=== PATIENT | female | born 1980 | race African-American/Black ===

== ENCOUNTER 2017-04-07 10:20 | Emergency (ER) | payer MEDICAID ==
[~2017-04-07] VITALS: Ht 160 cm; Wt 68.0 kg
[2017-04-07 11:43] VITALS: BP 138/86
[2017-04-07 12:54] LABS: CHLORIDE 106 mEq/L (98-107)
[2017-04-07 12:57] LABS: PROTHROMBIN TIME 10.7 sec
[2017-04-07 12:59] LABS: CARBON DIOXIDE 25 mEq/L (21-32)
[2017-04-07 13:02] LABS: BASOPHILS % 0.6 % (0.0-2.0); EOSINOPHILS % 0.2 % (0.0-5.0); HEMATOCRIT. 38.7 % (36.0-48.0); HEMOGLOBIN. 13.3 g/dL (12.0-16.0); LYMPHOCYTES % 28.9 % (20.0-50.0); MEAN CORPUSCULAR HEMOGLOBIN 30.1 pg (28.0-32.0); MEAN CORPUSCULAR VOLUME 87.4 fL (81.0-99.0); MEAN PLATELET VOLUME 7.9 fl (7.4-10.4); MONOCYTES % 4.2 % (2.0-8.0); NEUTROPHILS % 66.1 % (40.0-76.0); PLATELET 286 x1000/uL (130-400); RED BLOOD CELL COUNT 4.43 mill/uL (4.2-5.4); RED CELL DISTRIBUTION WIDTH 13.2 % (11.6-14.6)
[2017-04-07 13:09] LABS: CLARITY URINE CLEAR (CLEAR); COLOR URINE YELLOW (YELLOW); GLUCOSE URINE NEGATIVE (NEGATIVE); KETONES URINE NEGATIVE (NEGATIVE); LEUKOCYTE ESTERASE URINE NEGATIVE (NEGATIVE); NITRITE URINE NEGATIVE (NEGATIVE); OCCULT BLOOD URINE NEGATIVE (NEGATIVE); PH URINE 6.5 (4.5-8.0); PROTEIN URINE NEGATIVE (NEGATIVE); SPECIFIC GRAVITY URINE 1.012 (1.005-1.030); UROBILINOGEN URINE 0.2 E.U./dL (0.2-1.0)
[2017-04-07 13:17] LABS: B-HCG QUANTITATIVE 85590 mIU/mL (<3)
== END 2017-04-07 14:58 | disposition home or self-care (01) ==
LOC: ER 10:46
DX: O26.891 Other specified pregnancy related conditions, first trimester (principal); R06.02 Shortness of breath; K50.90 Crohn's disease, unspecified, without complications; Z3A.09 9 weeks gestation of pregnancy
CPT/HCPCS: 36415; 76801; 80053; 81003; 81025; 84702; 85025; 85610; 86850; 86900; 99285